=== PATIENT | male | born 1975 | race Caucasian/White ===

== ENCOUNTER 2017-12-27 02:17 | Inpatient (IN) ==
[2017-12-27 03:47] LABS: Heparin anti-factor XA UFH 0.33 IU/mL (0.30-0.70); Prothrombin Time 11.3 Seconds (9.4-12.1)
[2017-12-27 03:50] LABS: Activated Partial Thrombo Time 52.2 Seconds (26.0-36.0)
[2017-12-27] MEDS ORDERED: Naloxone 0.4 MG/ML INJ IVP PRN (04:01)
--- NOTE | 2017-12-27 04:11 | Internal Med History&Physical ---
Addendum entered and electronically signed by Rodrigue Trevizo MD 12/27/17 19:44: I saw and evaluated the patient. I reviewed the Nurse practitioner's note, performed my own physical examination and agree with findings and plan as documented in the nurse practitioners note. Patient seen and examined on morning of 12/27/17. Patient denies chest pain at this time. Does state he has a headache however. Cardiology consulted from ER, appreciate recommendations. Will continue to monitor, follow troponins. Heparin drip initiated. Original Note: Date of Encounter: 12/27/17 Time of Encounter: 03:00 Internal Medicine - H&P: HPI Chief complaint: Chest Pain Admitted From: Home Plans for Post Hospital Care: Home History of present illness: Mr. Hull is a 42 year old male with no significant past medical history who presents from [facility] ED for chest pain across chest that he describes as "elephant sitting on his chest" starting yesterday morning and lasting around 10 minutes. Experienced similar pain 3 times since Sunday12/23/17 but states yesterday was the worst. No pain radiation. No associated nausea, vomiting, diaphoresis, or shortness of breath. No alleviating or exacerbating factors. No home treatment. Pain lasted around 10 minutes each occurrence and resolved spontaneously. Pain completely resolved prior to presentation to ER and he remains pain free at this time. ER EKG reported as sinus rhythm. ER troponins x2 elevated 0.10 and 0.09 and heparin drip was initiated. ER Dr Allison contacted [facility] who agreed to consult on patient and hospitalist admit. Past Med Surg Social Fam HX - Past Medical History Medical history: no medical history Psychiatric history: no psych history - Past Surgical History Additional surgical history: tubes placed in ears - Social History Smoking Status: Current every day smoker Packs per day: 1 Smokeless Tobacco Status: No Alcohol use: heavy Drug use: none - Family History Father Hx Family Cardiac Disorders: Yes (HTN) Grandmother Living Status: Cause of : [place] Hx Family Cardiac Disorders: Yes ([place]) Grandfather Living Status: Cause of : [place] Hx Family Cardiac Disorders: Yes ([place]) Internal Medicine - H&P: Meds No Known Home Drugs 01/05/17 [History] Allergy/AdvReac Type Severity Reaction Status Date / Time No Known Allergies Allergy Verified 01/05/17 10:21 All Systems PM: A 10-system review of systems was performed and is negative for pertinent findings except as documented above in the HPI. - Constitutional Vitals: Temp Pulse Resp BP Pulse Ox 97.8 F 53 16 151/81 97 12/27/17 02:33 12/27/17 02:33 12/27/17 02:33 12/27/17 02:33 12/27/17 02:33 Exam: General: Alert and oriented. Skin:Normal color, no rash, no lesions. HEENT:Pupils equal, round and reactive. Cardiovascular:Normal S1 & S2, no rubs, murmurs or gallops. No JVD. Pulse regular. Lungs:Normal breath sounds, no wheezes or crackles. Abdomen:Soft, non-tender, no rigidity. Extremities:No deformity, no edema or tenderness, no joint swelling or clubbing. Neurological:Normal cognition and motor skills. Pulses:Carotid and radial pulses normal +2. Rest of the physical exam is non contributory. - Assessment and plan (1) NSTEMI (non-ST elevated myocardial infarction) Current Visit: Yes Status: Suspected Assessment and plan: Continuous residential monitor. Continue heparin drip. Cardiology consulted by ER. Serial troponins. Repeat labs in a.m. NPO. (2) Chest pain Current Visit: Yes Status: Acute Assessment and plan: Remains pain free at this time. Plan as stated above. Qualifiers: Chest pain type: unspecified Qualified Code(s): R07.9 - Chest pain, unspecified (3) Tobacco abuse Current Visit: Yes Status: Chronic Assessment and plan: Smoking cessation encouraged. Denies nicotine patch currently. - Time Spent With Patient Total time spent is greater than 50% in coordination of care (as documented) at patient's floor/unit and/or counseling patient:
[2017-12-27] MEDS ORDERED: Heparin 25,000 UNIT/500 ML D5W 25,000 UNIT/500 ML BAG IVC SCH (04:15)
[2017-12-27] MEDS ORDERED: *HR* LORazepam 2 MG/ML VIAL IVP PRN ×3 (07:40)
[2017-12-27] MEDS ORDERED: *HR* Promethazine 25 MG/ML VIAL IVP PRN (07:40)
[2017-12-27] MEDS: Acetaminophen 325 MG TABLET PO PRN (08:20)
[2017-12-27] MEDS: Folic Acid 1 MG TABLET PO SCH (08:20)
[2017-12-27] MEDS: Thiamine (B-1) 100 MG TABLET PO SCH (08:20)
[2017-12-27 08:31] LABS: Prothrombin Time 11.3 Seconds (9.4-12.1)
[2017-12-27 08:46] LABS: Amylase 24 Units/L (29-103); Ethanol < 10 mg/dL (Less than 10); Lipase 44 Units/L (11-82)
[2017-12-27] MEDS ORDERED: *HR* Heparin 5,000 UNIT/ML VIAL IVP PRN ×2 (10:31)
--- NOTE | 2017-12-27 11:45 | Cardiology Consult Note ---
<Baljeet Cardenas T - Last Filed: 12/27/17 12:36> Date of Encounter: 12/27/17 Time of Encounter: 11:39 Assessment and Plan (1) NSTEMI (non-ST elevated myocardial infarction) Current Visit: Yes Status: Suspected 42 YO M with elevated trops of .1, 0.09, 0.08, negative EKG, HTN, smoking, alcoholism presenting with CP since Sunday. Suspected NSTEMI. Patient is scheduled for [facility] today. Scheduled STEPHAN, lipids, TSH tomorrow. Discussion w patient/family: The assessment and plan as outlined above was discussed with the patient and/or family members who expressed understanding and agreement. All questions were answered. Thank you for involving us in the care of your patient. Please call with any questions. History of Present Illness Consult date: 12/27/17 Consult reason: Chest pain Chief complaint: Chest pain History of present illness: Mr. Hull is a 42 year old male here for CP. Multiple similar episodes of CP, once on Sunday, once on Sunday, and once Wed at 10AM. Each episode lasted about 10 minutes, 10/10 in pain, described as crushing. Denies pain radiation, nausea, vomiting, SOB, diaphoresis The last episode had associated SOB where the patient had to crouch down when it occurred. After Wed episode patient presented to [facility] where his troponins were 0.1. Last midnight they were 0.1 and at 4AM 0.08. Patient smokes 1PPD and drinks 2 beers per day on weekdays and 9-18 on weekends for several years. BP on admission was 156/97 now 136/81. Does not know if he has high cholesterol - no family doctor. No immediate family history of heart disease. Past Med Surg Social Fam HX - Past Medical History Medical history: no medical history Psychiatric history: no psych history - Past Surgical History Additional surgical history: tubes placed in ears - Social History Smoking Status: Current every day smoker Packs per day: 1 Smokeless Tobacco Status: No Alcohol use: heavy Drug use: none - Family History Father Hx Family Cardiac Disorders: Yes (HTN) Grandmother Living Status: Cause of : [place] Hx Family Cardiac Disorders: Yes ([place]) Grandfather Living Status: Cause of : [place] Hx Family Cardiac Disorders: Yes ([place]) Medications and Allergies Naproxen Sodium [Aleve] 440 mg PO QAM PRN 12/27/17 [History] Allergy/AdvReac Type Severity Reaction Status Date / Time No Known Allergies Allergy Verified 12/27/17 08:50 All Systems Review: The remainder of the systems were reviewed and are negative Physical Examination General: Conversant HEENT: Atraumatic, Normocephaly Neck: No JVD Cardiac: Reg Rate and Rhythm, Normal S1 and S2 Neuro: Alert and responsive Abdomen: Soft Skin: No rashes noted on visualized skin Musculoskeletal: No Chest Wall Tenderness Extremities: No Clubbing, No Cyanosis, No Edema, Normal Pulses Results Lab Results 12/27/17 12/27/17 12/27/17 03:21 03:21 08:08 INR 1.0 1.0 APTT 52.2 H D Troponin I 0.08 H* Amylase Lipase 12/27/17 08:08 INR APTT Troponin I Amylase 24 L Lipase 44 - Imaging and Cardiology Echo: pending (after cath) Cardiac cath: pending (planned for today) - EKG Interpretation EKG results cardiology: personally reviewed, no diagnostic ischemia Consult Discharge Plan - Plan Referrals: NONE,PCP [Primary Care Provider] - <Nicole Sterling - Last Filed: 12/27/17 12:49> Date of Encounter: 12/27/17 - Attending Attestation Patient was seen and evaluated independently by me. Findings, assessment and plan were discussed at length with patient, questions answered. Agree with nurse practitioner's/resident's documentation. Addition as follows, 42yoCM ho smoking, EtOH abuse, possible HTN no meds. P/w new crushing chest pressure walking around at home, 3 episodes in the past 4 days, 10 minutes/episode, worse yesterday am, relief by rest. No associated CV symptoms. No risk factors for PE, Ao dissection. BP 130s-150s/80s, CTA, RR, NT, no LE edema. Had ASA 324, on heparin drip ECG no active ischemic changes. Trop 0.1 flat. BMP wnl, no surgery planned, no bleeding A: NSTEMI HTN smoking EtOH abuse P: c/w heparin drip LHC, NPO, discussed with pt and family TTE lipid panel, TSH watch EtOH withdrawal Nicole Sterling MD, PhD Assessment and Plan Discussion w patient/family: The assessment and plan as outlined above was discussed with the patient and/or family members who expressed understanding and agreement. All questions were answered. Thank you for involving us in the care of your patient. Please call with any questions. History of Present Illness History of present illness: Mr. Hull is a 42 year old male All Systems Review: The remainder of the systems were reviewed and are negative Physical Examination Vital Signs, Last 4 Hours Temp Pulse Resp BP Pulse Ox 12/27/17 11:56 98.5 F 53 16 151/86 98 Results Lab Results 12/27/17 12/27/17 12/27/17 03:21 03:21 08:08 INR 1.0 1.0 APTT 52.2 H D Troponin I 0.08 H* Amylase Lipase 12/27/17 08:08 INR APTT Troponin I Amylase 24 L Lipase 44
--- NOTE | 2017-12-27 12:31 | Event Note ---
Date of Encounter: 12/27/17 Time of Encounter: 11:00 - Cardiology Event Note Patient was seen and evaluated independently by me. Findings, assessment and plan were discussed at length with patient, questions answered. Agree with nurse practitioner's/resident's documentation. Addition as follows, 42yoCM ho smoking, EtOH abuse, possible HTN no meds. P/w new crushing chest pressure walking around at home, 3 episodes in the past 4 days, 10 minutes/episode, worse yesterday am, relief by rest. No associated CV symptoms. No risk factors for PE, Ao dissection. BP 130s-150s/80s, CTA, RR, NT, no LE edema. Had ASA 324, on heparin drip ECG no active ischemic changes. Trop 0.1 flat. BMP wnl, no surgery planned, no bleeding A: NSTEMI HTN smoking EtOH abuse P: c/w heparin drip LHC, NPO, discussed with pt and family TTE lipid panel, TSH watch EtOH withdrawal Nicole Sterling MD, PhD
[2017-12-27] MEDS ORDERED: *HR* Heparin 10,000 UNIT/10 ML VIAL ONE (13:24)
[2017-12-27] MEDS ORDERED: Heparin 1,000 UNITS/500 mL 500 ML ONE (13:24)
[2017-12-27] MEDS ORDERED: 0.9 % Sodium Chloride 2,000 ML ONE (13:24)
[2017-12-27] MEDS ORDERED: ISOVUE-370 200 ML INFUS..BTL ONE (13:25)
[2017-12-27] MEDS ORDERED: Nitroglycerin 1,000 MCG/10 ML VIAL IV ONE (13:25)
[2017-12-27] MEDS ORDERED: *HR* Midazolam HCl 2 MG/2 ML VIAL ONE ×2 (13:40→13:52)
[2017-12-27 13:41] LABS: Chol/HDL Ratio 2.8 (0-4.9)
--- NOTE | 2017-12-27 13:45 | Pre-Sedation Evaluation ---
Pre-sedation evaluation - Pre-sedation checklist Date of procedure: 12/27/17 Procedure: left heart cath Recent Vitals: Last Vital Signs Temp 98.5 F 12/27/17 11:56 Pulse 53 12/27/17 11:56 Resp 16 12/27/17 11:56 BP 151/86 12/27/17 11:56 Pulse Ox 98 12/27/17 11:56 H&P (including ROS) documented in medical record: Yes Previous reaction to sedatives/anesthetics: Unknown Dietary Status: NPO after Midnight Airway Assessment: Patient can open mouth completely, TMJ function normal Dentition: full dentition Possible difficult airway: No ASA Classification *see protocol: CLASS IV-Severe systemic disease/constant threat to pt's life Plan of Care: Pt appropriate candidate for procedure/moderate/conscious sedation, Risks/benefits of procedure/sedation discussed w/ patient/family, If not NPO; Risk of intake outweiged by necessity to perform procedure Cardiac Registry (Cardio Only) - Functional Capacity Functional Capacity: >=4 METS without symptoms - Clincal Frailty Scale Clinical Frailty Scale: Managing Well (PT seen and examined, chart reviewed. discussed risks and benefits, elects to proceed.)
[2017-12-27 13:47] LABS: Thyroid Stimulating Hormone 2.439 mcIU/mL (0.340-5.600)
[2017-12-27] MEDS ORDERED: *HR* Ticagrelor 90 MG TABLET ONE (14:14)
--- NOTE | 2017-12-27 16:33 | Invasive Diagnostic Lab Proc ---
Name: Waqar Hull Date of Study: 12/27/2017 Date: 1975 Ht: 74.0in Medical Record#: [id number] Age: 42 Wt: 159.84lb Gender: Male BSA: 1.98 Order #: [id number] BMI: 20.51 Physicians Procedure Physician: Joaquín Camarena DO Referring MD: Referring MD: Staff Name Position Time In Yong Hull RT (R) Scrub 01:36 PM Jeovanny Whaley RN Monitor 01:36 PM Danni Vallejo RN Metal Welder 01:37 PM Indications Indication Non-Stemi Procedures Performed Procedure L HRT ARTERY/VENTRICLE ANGIO PRQ CARD MARK STENT W/ANGIO 1 VSL Pre-Procedure Checklist Informed consent is complete signed and on chart. H&P is on chart. ID band is on and ID verified with patient. Patient NPO for procedure The procedure was described for the patient and questions were answered. Blood Pressure: 151/86 ECG is on chart. Plan of Care Patient will tolerate the procedure without complications. Adequate level of comfort will be maintained. Hemodynamics will remain stable Patient will recover from procedure without complications. Respiratory function will be maintained. Cardiac rhythm will remain stable. Patient temperature will be maintained. Patient and/or family have verbalized understanding of the procedure. Patient Education Chief Complaint/Reason for Test: Cardiac Cath Developmental Category: Adult (18-64 years) Developmentally Appropriate for Age: Yes Learning Barriers: None Education Needs: Procedure Education Method: Verbal Information Taught: Cardiac Cath Educational Evaluation: Able to repeat information Intravenous Access Time IV Size Location DC'd Fluid/Drip Rate Units RN 12:57 PM 20g 1 03/01" Patent On Arrival Lt Antecubital Allergies No Known Allergies Vital Signs Time BP (mmHg) HR (bpm) O2 Sat. RR (bpm) LOC 12:57 PM 151 / 86 53 98 % 16 5 = Fully awake and oriented or at pre-proc level 01:48 PM / % 5 = Fully awake and oriented or at pre-proc level 01:48 PM / % 4 = Oriented but drowsy 01:44 PM 200 / 105 57 99 % 8 01:47 PM 175 / 82 59 100 % 15 01:52 PM 184 / 92 52 99 % 20 01:57 PM 170 / 99 52 99 % 15 02:02 PM 177 / 104 57 99 % 16 02:07 PM 186 / 105 59 99 % 17 02:12 PM 160 / 105 68 97 % 11 02:17 PM 169 / 98 62 97 % 18 02:33 PM 154 / 88 56 99 % 16 5 = Fully awake and oriented or at pre-proc level 02:45 PM 169 / 96 50 98 % 18 5 = Fully awake and oriented or at pre-proc level 03:00 PM 155 / 101 49 99 % 16 5 = Fully awake and oriented or at pre-proc level 03:15 PM 158 / 105 49 97 % 16 5 = Fully awake and oriented or at pre-proc level 03:35 PM 138 / 96 54 97 % 18 5 = Fully awake and oriented or at pre-proc level 03:45 PM 152 / 110 51 98 % 18 5 = Fully awake and oriented or at pre-proc level 04:00 PM 158 / 102 58 97 % 18 5 = Fully awake and oriented or at pre-proc level 04:15 PM 168 / 96 52 97 % 18 5 = Fully awake and oriented or at pre-proc level Procedural Medications Time Medication Dose Units Method Given By 01:47 PM Oxygen 2 L/min nasal cannula Danni Vallejo RN 01:47 PM Versed 2 mg Intravenous Danni Vallejo RN 01:51 PM Versed 1 mg Intravenous Danni Vallejo RN 01:54 PM Versed 1 mg Intravenous Danni Vallejo RN 01:55 PM Lidocaine 2% 10 ml Subcutaneous Joaquín Camarena DO 02:06 PM Heparin 2000 units Intravenous Danni Vallejo RN 02:10 PM Nitroglycerin 200 mcg Intracoronary Joaquín Camarena DO 02:16 PM Brilinta 180 mg Orally Danni Vallejo RN ASA Classification: CLASS IV- Severe systemic that is constant threat to patient's life Jose Miguel Score Preprocedure Postprocedure Activity 2- Moves 4 extremities sustained head lift Activity 2- Moves 4 extremities sustained head lift Circulation 2- SBP +/= 20 points of pre-anesthetic level Circulation 2- SBP +/= 20 points of pre-anesthetic level Consciousness 2- Awake and alert oriented x 3 Consciousness 2- Awake and alert oriented x 3 O2 Saturation 2- Able to maintain O2 satruation of 92% on room air O2 Saturation 2- Able to maintain O2 satruation of 92% on room air Respiratory 2- Able to deep breathe and cough well Respiratory 2- Able to deep breathe and cough well Total Score 10 Total Score 10 Contrast Agent: Isovue Diagnostic Contrast: 70 ml Total Contrast: 70 ml Fluoro Dose: 2757 mGy Activated Clotting Time Time Seconds to Clot 02:06 PM 192 Procedure Log Time Note Enter By 01:36 PM Pt arrived to home performance laborer 2 at 13:36 cedwards 01:36 PM Yong Hull RT (R) Position: Scrub Time in: 13:36 cedwards 01:37 PM Jeovanny Whaley RN Position: Monitor Time in: 13:36 cedwards 01:37 PM Danni Vallejo RN Position: Metal Welder Time in: 13:37 cedwards 01:37 PM Patient charges- Angio tray pack, Navilyst 3mm J, Pulse Oximetry and ACIST tubing and transducer cedwards 01:42 PM Vitals capture started with the following parameters, Patient=Adult, Interval=5 min, Initial Azoajyor=823 mmHg, Deflation Rate=5 mmHg, Cuff placed on Right Arm 01:44 PM HR=57 bpm, RQHH=306/105 mmhg, SpO2=99.0 %, Resp=8 B/min 01:46 PM Recorded ECG: HR=63 Condition=Condition 1 01:47 PM Physician arrived 13:47 cedwards :47 PM ASA Class CLASS IV- Severe systemic that is constant threat to patient's life ced:47 PM Meet and greet completed :47 PM Sign in performed according to hospital policy. Informed consent was obtained. ced:47 PM Procedure start 13:47 wards :47 PM Case Start 01:47 PM CathStat :47 PM Time: 13:47 Oxygen on at 2 L/min per nasal cannula by Danni Vallejo RN cedwards :47 PM HR=59 bpm, AYXS=780/82 mmhg, JfH3=329.0 %, Resp=15 B/min, Comment=NSR 01:47 PM Time: 13:47 Versed 2 mg Intravenous Given by Danni Vallejo RN cedwards :48 PM Time: 13:48 Patient comfortable and pain free: Yes ced:48 PM Time: 13:48LOC: 5 = Fully awake and oriented or at pre-proc level cedwards 01:49 PM Pressure channel 2 zeroed. 01:51 PM Time: 13:51 Versed 1 mg Intravenous Given by Danni Vallejo RN cedwards 01:52 PM HR=52 bpm, QLRB=061/92 mmhg, SpO2=99.0 %, Resp=20 B/min, Comment=NSR PM Time: :54 Versed 1 mg Intravenous Given by Danni Vallejo RN PM Clinical Presentation: Unstable angina ced: PM Time out was performed according to hospital policy. Conscious sedation and anesthesia was achieved (see medication log with in this report above) ced PM Time: : 10 ml Lidocaine 2% to right groin Subcutaneous Given by Joaquín Camarena DO : PM HR=52 bpm, BOKV=234/99 mmhg, SpO2=99.0 %, Resp=15 B/min, Comment=NSR PM Micro-Introducer Kit utilized for sheath placement ced: PM Access obtained by percutaneous puncture. 6Fr 10cm Terumo [place] sheath placed in right Femoral artery. [id number] ced:59 PM 6Fr FR 4 catheter inserted over the wire [facility] : PM Catheter crossed the aortic valve and was selectively placed in the left ventricle. Pressures recorded on pullback for left heart catheterization.Hand injection LV gram ced 02:00 PM Recorded Pressure: LV, HR=62, Condition=Condition 1 (Left Ventricle) LV 104/6/-1 02:00 PM Recorded Pressure: LV, Ao, HR=58, Condition=Condition 1 (Left Ventricle) LV 147/-6/9, (Aorta) Ao 154/72/108 02:00 PM 0.035 145cm Navilyst 3mmJ wire [id number] ced 02:00 PM RCA angiography performed in multiple views. ced 02:01 PM Recorded Pressure: Ao, HR=54, Condition=Condition 1 (Aorta) Ao 161/66/111 02:01 PM Catheter removed ced 02:01 PM Coronary Dominance: right cedwards 02:01 PM 6Fr FL 4 catheter inserted over the wire [facility] ced 02:02 PM LCA angiography performed in multiple views. ced 02:02 PM Recorded Pressure: Ao, HR=56, Condition=Condition 1 (Aorta) Ao 167/79/115 02:02 PM HR=57 bpm, GBPN=775/104 mmhg, SpO2=99.0 %, Resp=16 B/min, Comment=NSR 02:03 PM Time: 13:48LOC: 4 = Oriented but drowsy cedwards 02:04 PM Lesion found in Mid LAD. Pre Stenosis: 95 Pre ANTHONY Flow: 3: Complete and Brisk Flow/Perfusion cedwards 02:04 PM Catheter removed cedwards 02:05 PM 6Fr JL4 Cordis guide catheter was used to cannulate the PCI vessel successfully. reused? No cedwards 02:05 PM .014 ChoICE PT Extra Support 300cm guide wire across target lesion- successful. reused? No cedwards 02:05 PM Inflation device was opened. cedwards 02:06 PM Recorded Pressure: Ao, HR=61, Condition=Condition 1 (Aorta) Ao 183/99/133 02:06 PM At 14:06 the ACT was 192 seconds. ced 02:06 PM Time: 14:06 Heparin 2000 units Intravenous Given by Danni Vallejo RN ced 02:07 PM HR=59 bpm, DVYS=183/105 mmhg, SpO2=99.0 %, Resp=17 B/min, Comment=NSR 02:08 PM 2.5mm x 24mm Synergy drug-eluting stent across target lesion- successful Lot #[id number] cedwards 02:09 PM Stent deployed @ 16 leilani for 19 seconds cedwards 02:10 PM Stent delivery system removed intact. ced 02:10 PM Time: 14:10 Nitroglycerin 200 mcg Intracoronary Given by Joaquín Camarena DO cedwards 02:11 PM Guide wire removed intact. cedwards 02:11 PM Lesion found in 1st Diagonal. Pre Stenosis: 30 Pre ANTHONY Flow: cedwards 02:11 PM Lesion found in Mid Circumflex. Pre Stenosis: 30 Pre ANTHONY Flow: cedwards 02:12 PM Guide catheter removed intact. cedwards 02:12 PM Femoral Angiogram performed cedwards 02:12 PM HR=68 bpm, LDKE=005/105 mmhg, SpO2=97.0 %, Resp=11 B/min 02:16 PM Time: 14:16 Brilinta 180 mg Orally Given by Danni Vallejo RN cedwards 02:16 PM Procedure completed at 14:16 12/27/2017 cedwards 02:16 PM Did you address ANTHONY flow and Dominance? Yes cedwards 02:16 PM Coronary Dominance: right cedwards 02:17 PM Sign out completed: Radiation Dose 250.94 mGy, 2756.86 cGy/cm2 Fluoro Time: 2.8 Isovue 370 - 200ml contrast 70 ml given by Joaquín Camarena DO. Complications: None. The patient was discharged out of the slab tripper in stable condition. Cardiac Rehab Consult needed: YesConfirmed administered medications: Yes cedwards 02:17 PM Isovue 370 - 200ml,1 Bottle(s) used. cedwards 02:17 PM Sheath left in place to be pulled on floor/holding areaV+Pad cedwards 02:17 PM HR=62 bpm, IEEI=069/98 mmhg, SpO2=97 %, Resp=18 B/min 02:17 PM Estimated Blood Loss: minimal cedwards 02:18 PM Post ECG NSR cedwards 02:18 PM Post Blood Pressure 169/98 cedwards 02:18 PM Information taught Cardiac Cath and PCI cedwards 02:18 PM Education needs Procedure, Plan of Care, and Disease Process cedwards 02:18 PM Learning barriers :None cedwards 02:18 PM Education Methods Verbal cedwards 02:18 PM Education evaluation Able to repeat information cedwards 02:18 PM Site status No bleeding/hematoma - Rt Groin as reported by Yong Hull RT (R) at 14:18 cedwards 02:22 PM Report given to Mickey JOYA Pt taken to Holding room Room #2. 14:22 cedwards 02:22 PM Plavix, Effient or Brilinta given Yes cedwards 02:22 PM Family placed in consult room. cedwards 02:22 PM Complications: None cedwards 02:24 PM Patient out of room: 14:23 cedwards 02:35 PM Family at bedside. kwitte 02:48 PM Report called to Deandre on 2N mprater 03:56 PM Right femoral sheath pulled per this RN. Manual pressure being held with Vpad at present. kwitte 04:12 PM Hemostasis obtained to right femoral artery. Dressing applied with opsite. Patient educated on post sheath pull. Patient verbalized understanding. kwitte 04:22 PM Complications: None kwitte 04:23 PM Delay to floor Bed availability kwitte 04:23 PM Patient out of room: 16:23 kwitte Complications Complication None None Hemodynamics Pressures Site Systolic/A Wave Diastolic/V Wave Mean LV 104 6 -1 LV 147 -6 9 AO 154 72 108 AO 161 66 111 AO 167 79 115 AO 183 99 133 Post Procedure Information Blood Pressure: 169/98 mmHg Rhythm: NSR Post procedural instructions were given Site Checks Time Location Status Staff Sheath In? Note 02:18 PM Rt Groin No bleeding/hematoma Yong Hull RT (R) Yes 02:33 PM Rt Groin No bleeding/ No Hematoma Mickey Berkowitz RN Yes 02:45 PM Rt Groin No bleeding/ No Hematoma Farideh Gagnon RN Yes 03:00 PM Rt Groin No bleeding/ No Hematoma Farideh Gagnon RN Yes 03:15 PM Rt Groin No bleeding/ No Hematoma Mickey Berkowitz RN Yes 03:35 PM Rt Groin No bleeding/ No Hematoma Mickey Berkowitz RN Yes 03:45 PM Rt Groin No bleeding/ No Hematoma Mickey Berkowitz RN 04:00 PM Rt Groin No bleeding/ No Hematoma Mickey Berkowitz RN 04:15 PM Rt Groin No bleeding/ No Hematoma Mickey Berkowitz RN Pulses Time Site Pre-Procedure Post-Procedure Note 12/27/2017 12:57:00 PM Bilateral DP & PT 2+ 12/27/2017 12:57:00 PM Bilateral radial 2+ 12/27/2017 2:30:00 PM Bilateral DP & PT 2+ 12/27/2017 2:45:00 PM Bilateral DP & PT 2+ 12/27/2017 3:00:00 PM Bilateral DP & PT 2+ 12/27/2017 4:00:00 PM Bilateral DP & PT 2+ Updated by Mickey Berkowitz RN on 12/27/2017 4:23:21 PM Mickey Berkowitz RN electronically signed on 12/27/2017 4:26:58 PM with status of Final
[2017-12-27] MEDS: 0.9 % Sodium Chloride 1,000 ML IVC SCH ×2 (16:55→20:35)
--- NOTE | 2017-12-27 17:00 | Internal Med Progress Note ---
Hospitalist Progress Note - Encounter Date of Encounter: 12/27/17 Time of Encounter: 09:40 - Subjective Interval History: Mr. Hull is a 42-year-old male who presented admitted from [place] ED for significant chest pain described as a "elephant sitting on his chest", onset was 2 days ago and lasting around 10 minutes. He stated that he had similar episodes 3 on Sunday, and his symptoms had exacerbated 2 it was the worst yesterday. In the emergency room his EKG was reported as a normal sinus rhythm troponins were elevated 2 with a 0.10 and a 0.99 he was started on heparin drip and that is continued on today. Today he is awaiting [facility] cardiology. He continues to have chief complaint of chest pain. He did report to the nursing staff that he uses alcohol on a daily basis. Ports 2-4 beers Sunday through on weekends he does drink up to 12 beers nightly. He is requesting to have something for his nerves we will go ahead and start him on CWEL protocol with Ativan as needed on a 1-4 mg basis once he resumes by mouth status also will start thiamine and folic acid.. - Exam Vitals: Temp Pulse Resp BP Pulse Ox 97.9 F 52 18 168/100 99 12/27/17 16:30 12/27/17 16:30 12/27/17 16:30 12/27/17 16:30 12/27/17 16:30 Exam: mild hypertension note - Assessment and Plan (1) NSTEMI (non-ST elevated myocardial infarction) Current Visit: Yes Status: Suspected Assessment and Plan: awaiting [facility] per [place] [facility], currently NPO, will continue to monitor with telemetry (2) Tobacco abuse Current Visit: Yes Status: Chronic Assessment and Plan: Smoking cessation encouraged. Denies nicotine patch currently. (3) Chest pain Current Visit: Yes Status: Acute Assessment and Plan: Remains pain free at this time. Plan as stated above. DVT Prophylaxis: per protochol - Time Spent with Patient Total time spent is greater than 50% in coordination of care (as documented) at patient's floor/unit and/or counseling patient: less than 15 minutes Plan of Care Discussed with: patient Internal Medicine: Result - Labs Labs: Cardiac Enzymes 12/27/17 Range/Units 03:21 Troponin I 0.08 H* (< 0.04) ng/mL - ABG Interpretation ABG results: PT/INR, D-dimer PT 11.3 Seconds (9.4-12.1) 12/27/17 08:08 - Pulse Oximetry Interpretation Digit-Finger Pulse Oximetry Readin (RA) - Impressions Mr. Hull is a 42-year-old male who entered through the emergency room from his home with a daily episodes of precordial chest pain with elevated troponins. EKG positive for NN stymie he is nothing by mouth this morning awaiting a LHC. Continues with DVT precautions heparin drip and. Alcohol withdrawal protocol he reported to the nursing staff that he drinks on a daily basis with the use of 2-3 beers daily and on weekends up to a 12 pack he was requesting something for his anxiety. Did go ahead and give him some Ativan 1 mg.. Once he is resume back to by mouth meds we will also start him on his thiamine and folic acid. . Consult Discharge Plan - Plan Referrals: NONE,PCP [Primary Care Provider] - (3) Chest pain Qualifiers: Chest pain type: unspecified Qualified Code(s): R07.9 - Chest pain, unspecified
--- NOTE | 2017-12-27 17:32 | Invasive Diagnostic Lab Proc ---
Name: Waqar Hull Date of Study: 12/27/2017 Date: 1975 Ht: 74.0in Medical Record#: [id number] Age: 42 Wt: 159.84lb Gender: Male BSA: 1.98 Order #: [id number] BMI: 20.51 Physicians Procedure Physician: Joaquín Camarena DO Referring MD: Referring MD: Staff Name Position Time In Yong Hull RT (R) Scrub 01:36 PM Jeovanny Whaley RN Monitor 01:36 PM Danni Vallejo RN Senior Database Engineer 01:37 PM Indications Indication Non-Stemi Procedures Performed Procedure L HRT ARTERY/VENTRICLE ANGIO PRQ CARD MARK STENT W/ANGIO 1 VSL Pre-Procedure Checklist Informed consent is complete signed and on chart. H&P is on chart. ID band is on and ID verified with patient. Patient NPO for procedure The procedure was described for the patient and questions were answered. Blood Pressure: 151/86 ECG is on chart. Plan of Care Patient will tolerate the procedure without complications. Adequate level of comfort will be maintained. Hemodynamics will remain stable Patient will recover from procedure without complications. Respiratory function will be maintained. Cardiac rhythm will remain stable. Patient temperature will be maintained. Patient and/or family have verbalized understanding of the procedure. Patient Education Chief Complaint/Reason for Test: Cardiac Cath Developmental Category: Adult (18-64 years) Developmentally Appropriate for Age: Yes Learning Barriers: None Education Needs: Procedure Education Method: Verbal Information Taught: Cardiac Cath Educational Evaluation: Able to repeat information Intravenous Access Time IV Size Location DC'd Fluid/Drip Rate Units RN 12:57 PM 20g 1 03/01" Patent On Arrival Lt Antecubital Allergies No Known Allergies Vital Signs Time BP (mmHg) HR (bpm) O2 Sat. RR (bpm) LOC 12:57 PM 151 / 86 53 98 % 16 5 = Fully awake and oriented or at pre-proc level 01:48 PM / % 5 = Fully awake and oriented or at pre-proc level 01:48 PM / % 4 = Oriented but drowsy 01:44 PM 200 / 105 57 99 % 8 01:47 PM 175 / 82 59 100 % 15 01:52 PM 184 / 92 52 99 % 20 01:57 PM 170 / 99 52 99 % 15 02:02 PM 177 / 104 57 99 % 16 02:07 PM 186 / 105 59 99 % 17 02:12 PM 160 / 105 68 97 % 11 02:17 PM 169 / 98 62 97 % 18 02:33 PM 154 / 88 56 99 % 16 5 = Fully awake and oriented or at pre-proc level 02:45 PM 169 / 96 50 98 % 18 5 = Fully awake and oriented or at pre-proc level 03:00 PM 155 / 101 49 99 % 16 5 = Fully awake and oriented or at pre-proc level 03:15 PM 158 / 105 49 97 % 16 5 = Fully awake and oriented or at pre-proc level 03:35 PM 138 / 96 54 97 % 18 5 = Fully awake and oriented or at pre-proc level 03:45 PM 152 / 110 51 98 % 18 5 = Fully awake and oriented or at pre-proc level 04:00 PM 158 / 102 58 97 % 18 5 = Fully awake and oriented or at pre-proc level 04:15 PM 168 / 96 52 97 % 18 5 = Fully awake and oriented or at pre-proc level Procedural Medications Time Medication Dose Units Method Given By 01:47 PM Oxygen 2 L/min nasal cannula Danni Vallejo RN 01:47 PM Versed 2 mg Intravenous Danni Vallejo RN 01:51 PM Versed 1 mg Intravenous Danni Vallejo RN 01:54 PM Versed 1 mg Intravenous Danni Vallejo RN 01:55 PM Lidocaine 2% 10 ml Subcutaneous Joaquín Camarena DO 02:06 PM Heparin 2000 units Intravenous Danni Vallejo RN 02:10 PM Nitroglycerin 200 mcg Intracoronary Joaquín Camarena DO 02:16 PM Brilinta 180 mg Orally Danni Vallejo RN ASA Classification: CLASS IV- Severe systemic that is constant threat to patient's life Jose Miguel Score Preprocedure Postprocedure Activity 2- Moves 4 extremities sustained head lift Activity 2- Moves 4 extremities sustained head lift Circulation 2- SBP +/= 20 points of pre-anesthetic level Circulation 2- SBP +/= 20 points of pre-anesthetic level Consciousness 2- Awake and alert oriented x 3 Consciousness 2- Awake and alert oriented x 3 O2 Saturation 2- Able to maintain O2 satruation of 92% on room air O2 Saturation 2- Able to maintain O2 satruation of 92% on room air Respiratory 2- Able to deep breathe and cough well Respiratory 2- Able to deep breathe and cough well Total Score 10 Total Score 10 Contrast Agent: Isovue Diagnostic Contrast: 70 ml Total Contrast: 70 ml Fluoro Dose: 2757 mGy Activated Clotting Time Time Seconds to Clot 02:06 PM 192 02:45 PM 148 Procedure Log Time Note Enter By 01:36 PM Pt arrived to freezer laboratory technician 2 at 13:36 cedwards 01:36 PM Yong Hull RT (R) Position: Scrub Time in: 13:36 cedwards 01:37 PM Jeovanny Whaley RN Position: Monitor Time in: :36 cedwards 01:37 PM Danni Vallejo RN Position: Senior Database Engineer Time in: :37 cedwards 01:37 PM Patient charges- Angio tray pack, Navilyst 3mm J, Pulse Oximetry and ACIST tubing and transducer cedwards 01:42 PM Vitals capture started with the following parameters, Patient=Adult, Interval=5 min, Initial Nmmgqbqr=668 mmHg, Deflation Rate=5 mmHg, Cuff placed on Right Arm 01:44 PM HR=57 bpm, MEMW=488/105 mmhg, SpO2=99.0 %, Resp=8 B/min 01:46 PM Recorded ECG: HR=63 Condition=Condition 1 :47 PM Physician arrived 13:47 cedwards :47 PM ASA Class CLASS IV- Severe systemic that is constant threat to patient's life ced:47 PM Meet and greet completed :47 PM Sign in performed according to hospital policy. Informed consent was obtained. :47 PM Procedure start 13:47 :47 PM Case Start :47 PM CathStat :47 PM Time: 13:47 Oxygen on at 2 L/min per nasal cannula by Danni Vallejo RN cedwards :47 PM HR=59 bpm, VMVX=798/82 mmhg, GcQ7=338.0 %, Resp=15 B/min, Comment=NSR 01:47 PM Time: 13:47 Versed 2 mg Intravenous Given by Danni Vallejo RN cedwards :48 PM Time: 13:48 Patient comfortable and pain free: Yes ced:48 PM Time: 13:48LOC: 5 = Fully awake and oriented or at pre-proc level cedwards 01:49 PM Pressure channel 2 zeroed. 01:51 PM Time: 13:51 Versed 1 mg Intravenous Given by Danni Vallejo RN cedwards 01:52 PM HR=52 bpm, PAFW=570/92 mmhg, SpO2=99.0 %, Resp=20 B/min, Comment=NSR PM Time: : Versed 1 mg Intravenous Given by Danni Vallejo RN : PM Clinical Presentation: Unstable angina ced: PM Time out was performed according to hospital policy. Conscious sedation and anesthesia was achieved (see medication log with in this report above) PM Time: : 10 ml Lidocaine 2% to right groin Subcutaneous Given by Joaquín Camarena DO : PM HR=52 bpm, YWGF=547/99 mmhg, SpO2=99.0 %, Resp=15 B/min, Comment=NSR PM Micro-Introducer Kit utilized for sheath placement ced:59 PM Access obtained by percutaneous puncture. 6Fr 10cm Terumo [place] sheath placed in right Femoral artery. [id number] ced:59 PM 6Fr FR 4 catheter inserted over the wire [facility] :59 PM Catheter crossed the aortic valve and was selectively placed in the left ventricle. Pressures recorded on pullback for left heart catheterization.Hand injection LV gram cedwards 02:00 PM Recorded Pressure: LV, HR=62, Condition=Condition 1 (Left Ventricle) LV 104/6/-1 02:00 PM Recorded Pressure: LV, Ao, HR=58, Condition=Condition 1 (Left Ventricle) LV 147/-6/9, (Aorta) Ao 154/72/108 02:00 PM 0.035 145cm Navilyst 3mmJ wire [id number] cedwards 02:00 PM RCA angiography performed in multiple views. ced 02:01 PM Recorded Pressure: Ao, HR=54, Condition=Condition 1 (Aorta) Ao 161/66/111 02:01 PM Catheter removed ced 02:01 PM Coronary Dominance: right cedwards 02:01 PM 6Fr FL 4 catheter inserted over the wire [facility] ced 02:02 PM LCA angiography performed in multiple views. cedwards 02:02 PM Recorded Pressure: Ao, HR=56, Condition=Condition 1 (Aorta) Ao 167/79/115 02:02 PM HR=57 bpm, FMGC=043/104 mmhg, SpO2=99.0 %, Resp=16 B/min, Comment=NSR 02:03 PM Time: 13:48LOC: 4 = Oriented but drowsy cedwards 02:04 PM Lesion found in Mid LAD. Pre Stenosis: 95 Pre ANTHONY Flow: 3: Complete and Brisk Flow/Perfusion cedwards 02:04 PM Catheter removed cedwards 02:05 PM 6Fr JL4 Cordis guide catheter was used to cannulate the PCI vessel successfully. reused? No cedwards 02:05 PM .014 ChoICE PT Extra Support 300cm guide wire across target lesion- successful. reused? No cedwards 02:05 PM Inflation device was opened. cedwards 02:06 PM Recorded Pressure: Ao, HR=61, Condition=Condition 1 (Aorta) Ao 183/99/133 02:06 PM At 14:06 the ACT was 192 seconds. cedwards 02:06 PM Time: 14:06 Heparin 2000 units Intravenous Given by Danni Vallejo RN cedwards 02:07 PM HR=59 bpm, MOAP=812/105 mmhg, SpO2=99.0 %, Resp=17 B/min, Comment=NSR 02:08 PM 2.5mm x 24mm Synergy drug-eluting stent across target lesion- successful Lot #[id number] cedwards 02:09 PM Stent deployed @ 16 leilani for 19 seconds cedwards 02:10 PM Stent delivery system removed intact. cedwards 02:10 PM Time: 14:10 Nitroglycerin 200 mcg Intracoronary Given by Joaquín Camarena DO cedwards 02:11 PM Guide wire removed intact. cedwards 02:11 PM Lesion found in 1st Diagonal. Pre Stenosis: 30 Pre ANTHONY Flow: cedwards 02:11 PM Lesion found in Mid Circumflex. Pre Stenosis: 30 Pre ANTHONY Flow: cedwards 02:12 PM Guide catheter removed intact. cedwards 02:12 PM Femoral Angiogram performed cedwards 02:12 PM HR=68 bpm, GZOH=636/105 mmhg, SpO2=97.0 %, Resp=11 B/min 02:16 PM Time: 14:16 Brilinta 180 mg Orally Given by Danni Vallejo RN cedwards 02:16 PM Procedure completed at 14:16 12/27/2017 cedwards 02:16 PM Did you address ANTHONY flow and Dominance? Yes cedwards 02:16 PM Coronary Dominance: right cedwards 02:17 PM Sign out completed: Radiation Dose 250.94 mGy, 2756.86 cGy/cm2 Fluoro Time: 2.8 Isovue 370 - 200ml contrast 70 ml given by Joaquín Camarena DO. Complications: None. The patient was discharged out of the mobile lab technician in stable condition. Cardiac Rehab Consult needed: YesConfirmed administered medications: Yes cedwards 02:17 PM Isovue 370 - 200ml,1 Bottle(s) used. cedwards 02:17 PM Sheath left in place to be pulled on floor/holding areaV+Pad cedwards 02:17 PM HR=62 bpm, VLQP=599/98 mmhg, SpO2=97 %, Resp=18 B/min 02:17 PM Estimated Blood Loss: minimal cedwards 02:18 PM Post ECG NSR cedwards 02:18 PM Post Blood Pressure 169/98 cedwards 02:18 PM Information taught Cardiac Cath and PCI cedwards 02:18 PM Education needs Procedure, Plan of Care, and Disease Process cedwards 02:18 PM Learning barriers :None cedwards 02:18 PM Education Methods Verbal cedwards 02:18 PM Education evaluation Able to repeat information cedwards 02:18 PM Site status No bleeding/hematoma - Rt Groin as reported by Yong Hull RT (R) at 14:18 cedwards 02:22 PM Report given to Mickey JOYA Pt taken to Holding room Room #2. 14:22 cedwards 02:22 PM Plavix, Effient or Brilinta given Yes cedwards 02:22 PM Family placed in consult room. cedwards 02:22 PM Complications: None cedwards 02:24 PM Patient out of room: 14:23 cedwards 02:35 PM Family at bedside. kwitte 02:48 PM Report called to Deandre on 2N mprater 03:56 PM Right femoral sheath pulled per this RN. Manual pressure being held with Vpad at present. kwitte 04:12 PM Hemostasis obtained to right femoral artery. Dressing applied with opsite. Patient educated on post sheath pull. Patient verbalized understanding. kwitte 04:22 PM Complications: None kwitte 04:23 PM Delay to floor Bed availability kwitte 04:23 PM Patient out of room: 16:23 kwitte Complications Complication None None Hemodynamics Pressures Site Systolic/A Wave Diastolic/V Wave Mean LV 104 6 -1 LV 147 -6 9 AO 154 72 108 AO 161 66 111 AO 167 79 115 AO 183 99 133 Post Procedure Information Blood Pressure: 169/98 mmHg Rhythm: NSR Post procedural instructions were given Site Checks Time Location Status Staff Sheath In? Note 02:18 PM Rt Groin No bleeding/hematoma Yong Hull RT (R) Yes 02:33 PM Rt Groin No bleeding/ No Hematoma Mickey Berkowitz RN Yes 02:45 PM Rt Groin No bleeding/ No Hematoma Farideh Gagnon RN Yes 03:00 PM Rt Groin No bleeding/ No Hematoma Farideh Gagnon RN Yes 03:15 PM Rt Groin No bleeding/ No Hematoma Mickey Berkowitz RN Yes 03:35 PM Rt Groin No bleeding/ No Hematoma Mickey Berkowitz RN Yes 03:45 PM Rt Groin No bleeding/ No Hematoma Mickey Berkowitz RN 04:00 PM Rt Groin No bleeding/ No Hematoma Mickey Berkowitz RN 04:15 PM Rt Groin No bleeding/ No Hematoma Mickey Berkowitz RN Pulses Time Site Pre-Procedure Post-Procedure Note 12/27/2017 12:57:00 PM Bilateral DP & PT 2+ 12/27/2017 12:57:00 PM Bilateral radial 2+ 12/27/2017 2:30:00 PM Bilateral DP & PT 2+ 12/27/2017 2:45:00 PM Bilateral DP & PT 2+ 12/27/2017 3:00:00 PM Bilateral DP & PT 2+ 12/27/2017 4:00:00 PM Bilateral DP & PT 2+ Updated by Mickey Berkowitz, MAHNAZ on 12/27/2017 5:22:20 PM Mickey Berkowitz RN electronically signed on 12/27/2017 5:22:52 PM with status of Final
[2017-12-27] MEDS: Nicotine 14 MG PATCH.TD24 TD SCH (18:33)
[2017-12-27] MEDS: *HR* Ticagrelor 90 MG TABLET PO SCH (19:56)
--- NOTE | 2017-12-27 21:01 | Electrocardiograph Report ---
[address] [address] Test Date: 2017-12-27 Pat Name: Waqar Hull Department: 113 Room: 2N03 Gender: M Associate Director Of Nursing: ZELDA : 1975 Requested By: Manuel Fitzgerald Order Number: [id number] Reading MD: Natasha Warren Measurements Intervals [place] Rate: 50 P: 42 MA: 149 QRS: -1 QRSD: 104 T: 53 QT: 430 QTc: 404 Interpretive Statements SINUS BRADYCARDIA Electronically Signed On 12-27-2017 20:59:28 EDT by Natasha Warren
[2017-12-28 04:04] LABS: Basophils % 0.4 %; Eosinophils # 0.1 K/mcL (0.0-0.6); Eosinophils % 1.8 %; Hematocrit 45.9 % (37.5-50.1); Immature Granulocytes % 0.4 % (0-4); Lymphocytes # 1.5 K/mcL (0.6-4.6); Lymphocytes % 18.3 %; Mean Corpuscular HGB Conc 32.7 g/dL (31.6-35.5); Mean Corpuscular Hemoglobin 29.2 pg (28.0-33.3); Mean Corpuscular Volume 89.3 fL (83.0-100.0); Mean Platelet Volume 12.6 fL (9.4-12.4); Monocytes # 0.9 K/mcL (0.0-1.3); Monocytes % 11.6 %; Neutrophils # 5.4 K/mcL (1.6-8.9); Platelet Count 200 K/mcL (140-400); Red Blood Count 5.14 M/mcL (4.19-5.50); Red Cell Distribution Width 13.1 % (11.5-14.5); Segmented Neutrophils % 67.5 %
[2017-12-28 04:19] LABS: BUN/Creatinine Ratio 14 (6-26); Blood Urea Nitrogen 11 mg/dL (6-20); Calcium 8.7 mg/dL (8.6-10.3); Carbon Dioxide 24 mEq/L (23-29); Chloride 109 mEq/L (98-107); Glucose 109 mg/dL (70-105); Osmolality,Calculated 288 (280-300); Potassium 4.2 mEq/L (3.5-5.1); Sodium 139 mEq/L (136-145); eGFR For Non-African Americans > 60 (> 60)
[2017-12-28] MEDS: Folic Acid 1 MG TABLET PO SCH (07:28)
[2017-12-28] MEDS: Acetaminophen 325 MG TABLET PO PRN (07:28)
[2017-12-28] MEDS: *HR* Ticagrelor 90 MG TABLET PO SCH (07:28)
[2017-12-28] MEDS: Thiamine (B-1) 100 MG TABLET PO SCH (07:28)
[2017-12-28] MEDS ORDERED: Aspirin Enteric Coated 81 MG Tablet PO SCH (09:00)
[2017-12-28] MEDS: Nicotine 14 MG PATCH.TD24 TD SCH (09:13)
[2017-12-28 11:28] VITALS: BP 130/88
--- NOTE | 2017-12-28 14:38 | Cardiology Progress Note ---
Addendum entered and electronically signed by Baljeet Cardenas 12/28/17 15:19: Patient states he cannot afford brilinta because he doesn't have insurance and would prefer plavix. Will load patient on plavix and recommend he be d/c on plavix instead of brilinta Original Note: <Baljeet - Last Filed: 12/28/17 14:31> Date of Encounter: 12/28/17 Time of Encounter: 14:31 Assessment and Plan (1) NSTEMI (non-ST elevated myocardial infarction) Current Visit: Yes Status: Suspected 42 YO M with NSTEMI s/p C yesterday. Patient denies CP, SOB, palpitations. Echo shows patient has 60% EF no significant valvular dysfunction. Patient os okay to be d/c from cardiac standpoint. Cardiology will sign off at this time. Rec patient modify cardiac risk factors - Patient is a heavy alcohol drinker, 3-4 weekdays and 9-18 on weekend. Rec patient decrease alcohol use. - Patient is a smoker - recommend that he stop. - Recommend patient be d/c on lisinopril 2.5, brilinta, Lipitor, aspirin - He is not rec to be put on beta nancy because his heart rate is low - Patient scheduled for follow up with cardiology. Discussion w patient/family: The assessment and plan as outlined above was discussed with the patient and/or family members who expressed understanding and agreement. All questions were answered. Thank you for involving us in the care of your patient. Please call with any questions. Subjective Interval history: Patient reports that he is feeling better since that cath. Reports no SOB, CP, palpitations. He reports the catheter insertion site is only mildly sore and that the soreness has been improving. Objective Vital Signs, Last 4 Hours Temp Pulse Resp BP Pulse Ox 12/28/17 11:26 97.7 F 47 16 130/88 99 General: Conversant HEENT: Atraumatic, Normocephaly Neck: No JVD Cardiac: Reg Rate and Rhythm, Normal S1 and S2 Lungs: Normal Breath Sounds, No Wheeze, Rales, Rhonchi Neuro: Alert and responsive Abdomen: Soft Skin: No rashes noted on visualized skin Musculoskeletal: No Chest Wall Tenderness Extremities: No Clubbing, No Cyanosis, No Edema, Normal Pulses Results 12/28/17 03:39 12/28/17 03:39 Lab Results 12/28/17 12/28/17 03:39 03:39 WBC 8.0 Hgb 15.0 Hct 45.9 Plt Count 200 Sodium 139 Potassium 4.2 Chloride 109 H Carbon Dioxide 24 BUN 11 Creatinine 0.76 Glucose 109 H Calcium 8.7 - Imaging and Cardiology Echo: pending Consult Discharge Plan - Plan Instructions: Lisinopril (By mouth), Aspirin (By mouth), Nicotine (Absorbed through the skin), Atorvastatin (By mouth), Clopidogrel (By mouth), Chest Pain (DC), How to Stop Smoking (DC) Referrals: Joaquín Camarena DO [Partnered Physician] - NONE,PCP [Primary Care Provider] - Prescriptions: RX: Aspirin Enteric Coated [Aspirin EC] 81 mg PO DAILY #30 tablet. RX: Atorvastatin [Lipitor] 80 mg PO HS #60 tablet Clopidogrel [Plavix] 75 mg PO DAILY #30 tablet RX: Lisinopril [Zestril] 5 mg PO DAILY #30 tablet RX: Nicotine Patch [Nicoderm] 14 mg TD DAILY #7 patch.td24 < A - Last Filed: 12/28/17 15:32> Date of Encounter: 12/28/17 Assessment and Plan Discussion w patient/family: The assessment and plan as outlined above was discussed with the patient and/or family members who expressed understanding and agreement. All questions were answered. Thank you for involving us in the care of your patient. Please call with any questions. Results 12/28/17 03:39 12/28/17 03:39 Lab Results 12/28/17 12/28/17 03:39 03:39 WBC 8.0 Hgb 15.0 Hct 45.9 Plt Count 200 Sodium 139 Potassium 4.2 Chloride 109 H Carbon Dioxide 24 BUN 11 Creatinine 0.76 Glucose 109 H Calcium 8.7 - Attending Attestation I have personally performed a face to face evaluation on this patient. I have reviewed and agree with the care plan as documented by the resident. History and Exam by me shows: 42-year-old male current smoker, was admitted for NSTEMI, status post PCI to the LAD yesterday, placed on aspirin and Ticagrelor. He is doing well. No chest pain, shortness of breath or palpitations. Groin access site shows no swelling or hematoma. Echo shows normal ejection fraction with no significant valvular dysfunction. Not able to afford Ticagrelor due to insurance issues Plan: Load with Plavix 300 mg stat, then continue Plavix 75 mg daily. Continue aspirin 81 mg daily, ASHTYN inhibitor, high-dose statin. Beta nancy on hold because of bradycardia. Patient was counseled on smoking cessation. To follow-up with PCP and film painter. Thanks, Tomy Marrufo MD
--- NOTE | 2017-12-28 15:18 | Discharge Summary ---
- NOTES TO OUTPATIENT PROVIDER Notes to Outpatient Provider: Patient with history of tobacco abuse and hypertension was admitted for NSTEMI. Underwent LHC with PCI to mLAD. Echo showed normal EF without significant wall motion abnormalities. He will be discharged on DAPT, statin and ASHTYN inhibitor. Bb was not started due to sinus bradycardia. Smoking and alcohol cessation was emphasized. Orders not resulted at time of discharge: Pending orders 12/27/17 07:45 Drug Screen, Urine [UCHEM] NOW 12/27/17 10:49 CL Cardiac Catheterization [CL] Routine 12/27/17 14:52 ECG 12 lead ECG [ECG] Routine Date of Encounter: 12/28/17 Time of Encounter: 13:00 - Discharge Diagnosis (1) NSTEMI (non-ST elevated myocardial infarction) Priority: Primary Status: Suspected (2) Tobacco abuse Priority: Secondary Status: Chronic (3) Chest pain Priority: Secondary Status: Acute Qualifiers: Chest pain type: unspecified Qualified Code(s): R07.9 - Chest pain, unspecified Hospital course: Mr. Hull is a 42 year old male with history of tobacco abuse and hypertension was admitted for NSTEMI. Underwent LHC with PCI to mLAD. Echo showed normal EF without significant wall motion abnormalities. He will be discharged on DAPT, statin and ASHTYN inhibitor. Bb was not started due to sinus bradycardia. Smoking and alcohol cessation was emphasized. Discharge discussed with: patient, family, case management - Time Spent with Patient Total time spent providing and/or coordinating discharge services: 36 mins - Discharge Medications Prescriptions: Aspirin Enteric Coated [Aspirin EC] 81 mg PO DAILY #30 tablet. Atorvastatin [Lipitor] 80 mg PO HS #60 tablet Clopidogrel [Plavix] 75 mg PO DAILY #30 tablet Lisinopril [Zestril] 5 mg PO DAILY #30 tablet Nicotine Patch [Nicoderm] 14 mg TD DAILY #7 patch.td24 Home Medications: Aspirin Enteric Coated [Aspirin EC] 81 mg PO DAILY #30 tablet. 12/28/17 [Rx] Atorvastatin [Lipitor] 80 mg PO HS #60 tablet 12/28/17 [Rx] Clopidogrel [Plavix] 75 mg PO DAILY #30 tablet 12/28/17 [Rx] Lisinopril [Zestril] 5 mg PO DAILY #30 tablet 12/28/17 [Rx] Nicotine Patch [Nicoderm] 14 mg TD DAILY #7 patch.td24 12/28/17 [Rx] Allergies/Adverse Reactions: Allergy/AdvReac Type Severity Reaction Status Date / Time No Known Allergies Allergy Verified 12/27/17 08:50 Date of admission: 12/28/17 13:44 Primary care physician: PCP NONE Consults: 12/27/17 04:04 Consult to Cardiology [CONS] Routine Comment: Consulting Provider: [facility] Reason for Consult: NSTEMI from [facility]. Dr Teodoro Allison contacted [facility] prior to transfer. Call Completed: Yes 12/27/17 07:40 Consult to Spike Machine Operator [CONS] Routine Reason for SW Consult: daily alcohol use 12/27/17 14:52 Consult to Cardiac Rehabilitation-Phase1 [CONS] Routine Comment: Reason for Consult: AMI Call Completed: Yes Consult to Nurse Navigator [CONS] Routine Comment: - Constitutional Vitals: Temp Pulse Resp BP Pulse Ox 97.7 F 47 16 130/88 99 12/28/17 11:26 12/28/17 11:26 12/28/17 11:26 12/28/17 11:26 12/28/17 11:26 Exam: General: Alert and oriented, not in acute distress. Cardiovascular:Normal S1 & S2, No JVD. Pulse regular. Lungs: clear to auscultation, no wheezes/rales Abdomen:Soft, non-tender, no rigidity. Extremities:No deformity or swelling. R groin dressing dry and clean Neurological:Normal cognition and motor skills. Non-focal - Patient Status Disposition: Home, Self-Care Condition: Fair Functional capacity at discharge: independent ambulation Overall status at discharge: patient is progressing back to baseline - Discharge Instructions Instructions: Chest Pain (DC) Follow Up With: NONE,PCP [Primary Care Provider] - Joaquín Camarena DO [Partnered Physician] - - Diet and Activity Activity: resume usual activities as tolerated Diet: low salt diet
== END 2017-12-28 16:02 | disposition home or self-care (01) | DRG 247 ==
LOC: 3BNU → SUATTDRO 02:17 → 2NNU 16:45
PROVIDERS: ADMIT Pediatrics; ATTEND Internal Medicine